=== PATIENT | male | born 1950 | race Caucasian/White ===

== ENCOUNTER 2016-12-30 09:24 | Emergency (ER) | payer BC ==
[2016-12-30 10:38] LABS: BASO % 0.2 % (0-6); EOS % 0.3 % (0-6); GRAN % 76.2 % (47-80); HEMATOCRIT 46.1 % (42.0-52.0); HEMOGLOBIN 15.7 gm/dl (14.0-18.0); LYMPH % 11.4 % (16-45); MEAN CORPUSCULAR HGB CONC 34.1 g/dl (32-36); MEAN PLATELET VOLUME 9.3 fl (7.4-10.4); MONO % 11.9 % (0-9); PLATELET COUNT 287 K/uL (130-400); RED BLOOD COUNT 5.24 M/uL (4.40-5.70); RED CELL DISTRIBUTION WIDTH 13.3 % (11.5-14.5); WHITE BLOOD COUNT W/O DIFF 17.2 K/uL (4.2-12.2)
[2016-12-30 10:48] LABS: ANION GAP 10.2 (7-16); BLOOD UREA NITROGEN 19 mg/dL (9-20); CARBON DIOXIDE 23.8 mmol/L (22-30); CREATININE 0.8 mg/dL (0.66-1.25); EST GLOMERULAR FILTRATION RATE > 60 ml/min; GLUCOSE,RANDOM 100 mg/dL (70-110)
--- NOTE | 2016-12-30 10:49 | Emergency Department Record ---
History of Present Illness - General Chief complaint: Facial Swelling Stated complaint: RT JAW SWELLING Time Seen by Provider: 12/30/16 09:50 Source: Patient Mode of Arrival: Ambulatory Limitations: No limitations - History of Present Illness Initial Comments: pt developed r facial swelling yesterday which is worse this morning. it is tender and he feels like he has been running a fever and he has body aches. he had mumps as a child. he also has been getting shooting pains in his r foot which he has had before from a previous injury. MD Complaint: Facial swelling Onset/Timin -: Hour(s) Exposure: Unknown Symptoms: Facial swelling, Other Treatment Prior to Arrival: Other Previous Allergy History: None - Related Data Home Medications Medication Instructions Recorded Confirmed Last Taken Lisinopril [Prinivil] 5 mg PO DAILY 12/30/16 12/30/16 12/30/16 Previous Rx's Medication Instructions Recorded Clindamycin HCl 150 mg PO Q6HR #40 capsule 12/30/16 Clindamycin HCl 300 mg PO Q6HR #40 capsule 12/30/16 Allergies Allergy/AdvReac Type Severity Reaction Status Date / Time No Known Drug Allergies Allergy Verified 02/02/15 16:39 Travel Screening - Travel/Exposure Within Last 30 Days Have you traveled within the last 30 days?: No - Travel/Exposure Within Last Year Have you traveled outside the [place] in the last year?: No - Additonal Travel Details Have you been exposed to anyone with a communicable illness?: No - Travel Symptoms Symptom Screening: None Review of Systems Reviewed: No additional complaints except as noted below Constitutional: Reports: As per HPI. Denies: Chills, Fever, Malaise, Night sweats, Weakness, Weight change Eyes: Reports: As per HPI. Denies: Eye discharge, Eye pain, Photophobia, Vision change ENT: Reports: As per HPI. Denies: Congestion, Dental pain, Ear pain, Epistaxis , Hearing loss, Throat pain Respiratory: Reports: As per HPI. Denies: Cough, Dyspnea, Hemoptysis, Stridor, Wheezes Cardiovascular: Reports: As per HPI. Denies: Arrhythmia, Chest pain, Dyspnea on exertion, Edema, Murmurs, Orthopnea, Palpitations, Paroxysmal nocturnal dyspnea, Rheumatic Fever, Syncope Endocrine: Reports: As per HPI. Denies: Fatigue, Heat or cold intolerance, Polydipsia, Polyuria Gastrointestinal: Reports: As per HPI. Denies: Abdominal pain, Constipation, Diarrhea, Hematemesis, Hematochezia, Melena, Nausea, Vomiting Genitourinary: Reports: As per HPI. Denies: Dysuria, Frequency, Hematuria, Incontinence, Retention, Testicular pain, Testicular mass, Urgency Musculoskeletal: Reports: As per HPI. Denies: Arthralgia, Back pain, Gout, Joint swelling, Myalgia, Neck pain Skin: Reports: As per HPI. Denies: Bruising, Change in color, Change in hair/ nails, Lesions, Pruritus, Rash Neurological: Reports: As per HPI. Denies: Abnormal gait, Confusion, Headache, Numbness, Paresthesias, Seizure, Tingling, Tremors, Vertigo, Weakness Psychiatric: Reports: As per HPI. Denies: Anxiety, Auditory hallucinations, Depression, Homicidal thoughts, Suicidal thoughts, Visual hallucinations Hematological/Lymphatic: Reports: As per HPI. Denies: Anemia, Blood Clots, Easy bleeding, Easy bruising, Swollen glands Past Medical History - SOCIAL HISTORY Smoking Status: Former smoker Alcohol Use: Rare Drug Use: None - RESPIRATORY Hx Respiratory Disorders: No - CARDIOVASCULAR Hx Cardio Disorders: No - NEURO Hx Neuro Disorders: No - GI Hx GI Disorders: No - Hx Genitourinary Disorders: No - ENDOCRINE Hx Endocrine Disorders: No - MUSCULOSKELETAL Hx Musculoskeletal Disorders: Yes Hx Back Injury: Yes Comment:: Prior injuries from a fall down an elevator shaft, bilateral ankle surgery - PSYCH Hx Psych Problems: No - HEMATOLOGY/ONCOLOGY Hx Hematology/Oncology Disorders: No Family Medical History Any Significant Family History?: Yes Hx Diabetes: Father, Mother Hx Heart Disease: Father, Mother Physical Exam - General General Appearance: Alert, Oriented x3, Cooperative, Mild distress - Head Head exam: Normal inspection Image of Face/Head: 1 - swelling and tenderness, no drainage from parotid - Eye Eye exam: Normal appearance, PERRL Pupils: Normal accommodation - ENT ENT exam: Normal exam, Mucous membranes moist, Normal external ear exam, Normal orophraynx, TM's normal bilaterally Ear exam: Normal external inspection. negative: External canal tenderness Nasal Exam: Normal inspection. negative: Discharge, Sinus tenderness Mouth exam: Tongue normal, Trismus Teeth exam: Normal inspection. negative: Dental caries Throat exam: Normal inspection. negative: Tonsillar erythema, Tonsillar exudate - Neck Neck exam: Normal inspection, Full ROM. negative: Tenderness - Respiratory Respiratory exam: Normal lung sounds bilaterally. negative: Respiratory distress - Cardiovascular Cardiovascular Exam: Regular rate, Normal rhythm, Normal heart sounds - GI/Abdominal GI/Abdominal exam: Soft, Normal bowel sounds. negative: Tenderness - Rectal Rectal exam: Deferred - exam: Deferred - Extremities Extremities exam: Normal inspection, Full ROM, Normal capillary refill. negative: Tenderness - Back Back exam: Reports: Normal inspection, Full ROM. Denies: Muscle spasm, Rash noted, Tenderness - Neurological Neurological exam: Alert, CN II-XII intact, Normal gait, Oriented X3 - Psychiatric Psychiatric exam: Normal affect, Normal mood - Skin Skin exam: Dry, Intact, Normal color, Warm Course Vital Signs 12/30/16 09:35 Temperature 98.3 F Pulse Rate 73 Respiratory 16 Rate Blood Pressure 112/79 Pulse Ox 95 - Reevaluation(s) Reevaluation #1: 12/30/16 13:15 pt did well. he was informed of esophagela nodule Medical Decision Making - Lab Data Result diagrams: 12/30/16 10:25 12/30/16 10:25 Lab Results 12/30/16 Range/Units 10:25 WBC 17.2 H (4.2-12.2) K/uL RBC 5.24 (4.40-5.70) M/uL Hgb 15.7 (14.0-18.0) gm/dl Hct 46.1 (42.0-52.0) % MCV 88.0 (81-97) fl MCH 30.0 (27-33) pg MCHC 34.1 (32-36) g/dl RDW 13.3 (11.5-14.5) % Plt Count 287 (130-400) K/uL MPV 9.3 (7.4-10.4) fl Gran % 76.2 (47-80) % Lymphocytes % 11.4 L (16-45) % Monocytes % 11.9 H (0-9) % Eosinophils % 0.3 (0-6) % Basophils % 0.2 (0-6) % Disposition Disposition: Discharge Clinical Impression: Parotiditis, Nodule of esophagus Disposition: Home, Self-Care Condition: (1) Good Instructions: Sialoadenitis (ED) Additional Instructions: follow up sunday with family doctor. follow up with ENT doctor regarding esophageal nodule for further evaluation return sooner if worse. sleep elevated. return if swelling increases or running fever more then 100.5 or if worse. Prescriptions: Clindamycin HCl 150 mg PO Q6HR #40 capsule Clindamycin HCl 300 mg PO Q6HR #40 capsule
[2016-12-30] MEDS ORDERED: CLINDAMYCIN 600MG/50ML PREMIX 600 MG/50 ML BAG IVPB ONE (12:04)
--- NOTE | 2017-01-01 09:54 | CT SCAN REPORT ---
EXAM: CT SCAN OF THE NECK WITH CONTRAST HISTORY: RIGHT SIDED FACIAL AND NECK PAIN AND SWELLING. TECHNIQUE: Standard CT imaging of the neck was performed in the axial plane with contrast. 100 ml of Omnipaque 300 were administered. Additional coronal and sagittal reformatted images were also performed. Comparison: None. FINDINGS: The visualized intracranial structures are normal. Mild chronic mucosal thickening is present within the ethmoid and maxillary sinuses. A small amount of fluid is present within the right maxillary sinus consistent with sinusitis. A small mucous retention cyst is present within the left maxillary sinus. The middle ear cavities and mastoid air cells are clear. The nasopharynx, oropharynx, hypopharynx, and larynx are normal. There is enlargement of the right parotid gland with adjacent fat stranding which extends inferiorly along the right neck. The appearance is consistent with acute right parotitis. There is no associated ductal dilatation or abscess. There is no visible sialolith. There are adjacent nonenlarged lymph nodes which are likely reactive in nature. There is no pathologic lymphadenopathy. The left parotid gland and both submandibular glands are normal. The thyroid gland is unremarkable. There are minor paraseptal emphysematous changes at the lung apices. The lung apices are otherwise clear. Degenerative changes are present within the cervical spine. There are no acute osseous abnormalities. IMPRESSION: 1. ACUTE RIGHT PAROTITIS WITH ADJACENT INFLAMMATORY FAT STRANDING. THERE IS NO ASSOCIATED ABSCESS, SIALOLITH, OR DUCTAL DILATATION. 2. MILD RIGHT MAXILLARY SINUSITIS. 3. MILD CHRONIC MUCOSAL THICKENING WITHIN THE ETHMOID AND MAXILLARY SINUSES WITH A SMALL MUCOUS RETENTION CYST IN THE LEFT MAXILLARY SINUS. 4. NOT MENTIONED ABOVE, THERE IS A 7 X 6 MM OVAL SMOOTHLY MARGINATED NODULE WITHIN THE VALLECULA ALONG THE ANTERIOR MARGIN OF THE EPIGLOTTIS JUST TO THE LEFT OF MIDLINE. DIRECT VISUALIZATION IS RECOMMENDED. JOB NUMBER: [id number] [facility]
== END 2016-12-30 13:42 | disposition home or self-care (01) ==
LOC: ER 09:24
DX: K11.21 Acute sialoadenitis (principal); M54.2 Cervicalgia; K22.9 Disease of esophagus, unspecified; Z87.891 Personal history of nicotine dependence
CPT/HCPCS: 99284 ×2; 96365; 85025; 80048; 70491; Q9967